=== PATIENT | female | born 1935 | race African-American/Black ===

== ENCOUNTER 2016-12-11 14:09 | Emergency (ER) | payer MEDICARE ==
[~2016-12-11] VITALS: Ht 157.5 cm; Wt 69.0 kg
[~2016-12-11 14:09] MED LIST: ASPI-1159 PO; ESCI5SOL2 PO; LEVO112T7 PO; OLME1TAB28 PO; TRAM50TA3 PO
[2016-12-11] MEDS ORDERED: SODIUM CHLORIDE 0.9% 500 ML IV ONE (15:15)
[2016-12-11 15:51] LABS: PROTHROMBIN TIME 9.9 sec
[2016-12-11 15:57] LABS: BASOPHILS % 0.7 % (0.0-2.0); EOSINOPHILS % 1.5 % (0.0-5.0); HEMATOCRIT. 34.8 % (36.0-48.0); HEMOGLOBIN. 11.6 g/dL (12.0-16.0); LYMPHOCYTES % 18.2 % (20.0-50.0); MEAN CORPUSCULAR HEMOGLOBIN 27.8 pg (28.0-32.0); MEAN CORPUSCULAR VOLUME 83.2 fL (81.0-99.0); MEAN PLATELET VOLUME 9.2 fl (7.4-10.4); MONOCYTES % 6.6 % (2.0-8.0); PLATELET 187 x1000/uL (130-400); RED BLOOD CELL COUNT 4.18 mill/uL (4.2-5.4); RED CELL DISTRIBUTION WIDTH 14.9 % (11.6-14.6)
[2016-12-11 16:30] LABS: CARBON DIOXIDE 30 mEq/L (21-32); CHLORIDE 103 mEq/L (98-107)
[2016-12-11 16:32] LABS: TROPONIN I < 0.02 ng/mL (0.00-0.04)
[2016-12-11 17:12] VITALS: BP 146/70
[2016-12-11 17:24] LABS: CLARITY URINE CLEAR (CLEAR); COLOR URINE YELLOW (YELLOW); GLUCOSE URINE NEGATIVE (NEGATIVE); KETONES URINE NEGATIVE (NEGATIVE); LEUKOCYTE ESTERASE URINE NEGATIVE (NEGATIVE); NITRITE URINE NEGATIVE (NEGATIVE); OCCULT BLOOD URINE NEGATIVE (NEGATIVE); PH URINE 6.5 (4.5-8.0); PROTEIN URINE NEGATIVE (NEGATIVE); SPECIFIC GRAVITY URINE 1.007 (1.005-1.030); UROBILINOGEN URINE 0.2 E.U./dL (0.2-1.0)
== END 2016-12-11 19:12 | disposition home or self-care (01) ==
LOC: ER 15:43
DX: R55 Syncope and collapse (principal); R42 Dizziness and giddiness; R53.1 Weakness; R07.9 Chest pain, unspecified; R51 Headache; I11.9 Hypertensive heart disease without heart failure; E11.9 Type 2 diabetes mellitus without complications; E03.9 Hypothyroidism, unspecified; Z79.82 Long term (current) use of aspirin
CPT/HCPCS: 36415; 70450; 71010; 80053; 81003; 84484; 85025; 85610; 93005; 96360; 99285; J7030; J7040